=== PATIENT | male | born 1975 | race Caucasian/White ===

== ENCOUNTER 2018-08-20 20:23 | Emergency (ER) | payer OTHER ==
[2018-08-20 20:59] VITALS: RESP 18; O2SAT 99
[2018-08-20 22:13] VITALS: BP 138/76; PULSE 74; TEMP 98.5
--- NOTE | 2018-08-20 22:13 | C.PDOC ---
History Of Present Illness 42 year old male with PMHx of chronic back pain and GERD presents to the ED c/o epigastric abdominal pain, feeling bloated that started while driving today. Patient also reports having upper, mid and lower back pain consistent with his chronic back pain. Patient reports he drank a coke which made him burp and relieved the bloating feeling. Patient reports he took Zantac at home with some delayed relief. On arrival to the ED patient no longer having pain/bloating/burning in his abdomen. Patient requesting to have an EKG done. Wayne vazquez saw a senior center manager 2 months ago with normal echo and stress test. Patient denies fever, chills, headache, visual changes, dizziness, nausea, vomit, diarrhea, weakness, numbness, SOB, palpitations, Chest pain. Time Seen by Provider: 08/20/18 21:06 Chief Complaint (Nursing): Back Pain History Per: Patient History/Exam Limitations: no limitations Onset/Duration Of Symptoms: Hrs Current Symptoms Are (Timing): Still Present Quality Of Discomfort: Burning Recent travel outside of the [place]: No Additional History Per: Patient Past Medical History Reviewed: Historical Data, Nursing Documentation, Vital Signs Vital Signs: Last Vital Signs Temp 98.4 F 08/20/18 20:54 Pulse 70 08/20/18 20:54 Resp 18 08/20/18 20:54 BP 143/83 08/20/18 20:54 Pulse Ox 99 08/20/18 20:54 - Medical History PMH: Back Problems, GERD Denies: Chronic Kidney Disease Surgical History: No Surg Hx Family History: States: Unknown Family Hx - Social History Hx Tobacco Use: No Hx Alcohol Use: No Hx Substance Use: No - Immunization History Hx Tetanus Toxoid Vaccination: No Hx Influenza Vaccination: No Hx Pneumococcal Vaccination: No Review Of Systems Constitutional: Negative for: Fever, Chills Cardiovascular: Negative for: Chest Pain, Palpitations Respiratory: Negative for: Shortness of Breath Gastrointestinal: Positive for: Abdominal Pain. Negative for: Nausea, Vomiting Musculoskeletal: Positive for: Back Pain Skin: Negative for: Rash Neurological: Negative for: Weakness, Numbness, Headache, Dizziness Physical Exam - Physical Exam Appears: Non-toxic, No Acute Distress Skin: Normal Color, Warm, Dry, No Rash Head: Atraumatic, Normacephalic Eye(s): bilateral: Normal Inspection Oral Mucosa: Moist Neck: Normal ROM, Supple Chest: Symmetrical Cardiovascular: Rhythm Regular Respiratory: Normal Breath Sounds, No Rales, No Rhonchi, No Wheezing Gastrointestinal/Abdominal: Soft, No Tenderness, No Guarding, No Rebound Back: No CVA Tenderness Extremity: Normal ROM, No Tenderness, No Swelling Neurological/Psych: Oriented x3, Normal Speech, Normal Cognition Gait: Steady ED Course And Treatment ECG: Interpreted By Me, Viewed By Me ECG Rhythm: Sinus Rhythm ECG Interpretation: Normal Rate From EC (BPM) O2 Sat by Pulse Oximetry: 99 (ON RA) Pulse Ox Interpretation: Normal Progress Note: Plan: - EKG. Patient is resting comfortably, is no longer having dyspepsia, no chest pain, SOB. Patient has no risk factors for pulmonary emboli or DVT. Clinical presentation is not suggestive of aortic dissection. Patient is being discharged home and is being advised to follow up with physician/clinic in 1-2 days. Reassessment Condition: Improved Disposition - Disposition Referrals: Venu Hughes MD [Medical Doctor] - Disposition: HOME/ ROUTINE Disposition Time: 22:05 Condition: STABLE Additional Instructions: Please follow up with PMD continue tylenol and motrin for pain Return to ER if worse Instructions: Acid Reflux (Gastroesophageal Reflux Disease), Adult (DC) Forms: [employer] ([employer]) - Clinical Impression Clinical Impression: Dyspepsia, Back pain - PA / BROTH SETTER / Resident Statement MD/DO has reviewed & agrees with the documentation as recorded. - Scribe Statement The provider has reviewed the documentation as recorded by the Scribe Joseluis Jasso All medical record entries made by the Scribe were at my direction and personally dictated by me. I have reviewed the chart and agree that the record accurately reflects my personal performance of the history, physical exam, medical decision making, and the department course for this patient. I have also personally directed, reviewed, and agree with the discharge instructions and disposition.
--- NOTE | 2018-08-23 12:59 | CARD ---
APPROVED REPORT Date of service: 08/20/2018 EKG Measurement Heart [id number] <Conclusion> Normal sinus rhythm Normal ECG
== END 2018-08-20 22:20 | disposition home or self-care (01) ==
LOC: C.ER 20:23
DX: M54.5 Low back pain (principal); R10.13 Epigastric pain

== ENCOUNTER 2018-09-02 23:45 | Emergency (ER) | payer OTHER ==
[2018-09-03] MEDS ORDERED: Sodium Chloride 0.9% 3,000 ML IV ONE (01:25)
[2018-09-03] MEDS ORDERED: Sodium Chloride 0.9% 1,000 ML IV ONE (01:28)
--- NOTE | 2018-09-03 01:28 | C.PDOC ---
History Of Present Illness 42 year old male with PMHx of chronic back pain and GERD presents to the ED c/o palpitations that started at 21:00. Patient reports he is fasting for , felt symptoms after eating breakfast. Patient states his HR was 125 with a ssociated near syncope. Patient was seen on 08/20/18, patient saw restaurant team member 2 months ago with normal echo and stress test. Patient denies fever, chills, CP, SOB, leg swelling, other PE risk factors, nausea, vomit, diarrhea. PALPITATIONS SINCE 2100. PS FASTING FOR , FELT SX AFTER BREAKING FAST. HR 125. +ASSOC NEAR SYNCOPE. NO CP, SOB, LEG SWELL, OTHER PE RISK FACTORS. NO FEVER, NVD. SEEN 08/20/18 PMHx of chronic back pain and GERD. Patient saw a restaurant team member 2 months ago with normal echo and stress test. EXAM NAD NONTOXIC HEENT ANICTERIC LUNGS NARD CV RRR SINUS TACH EXT NO EDEMA SWELL REMAINDER NEG MDM PALPITATIONS. DEHYDRATION VS DYSRHYTHMIA Time Seen by Provider: 09/03/18 01:00 Chief Complaint (Nursing): Palpitations History Per: Patient History/Exam Limitations: no limitations Onset/Duration Of Symptoms: Hrs (21:00) Current Symptoms Are (Timing): Still Present Quality Of Symptoms: Rapid Heart Rate Recent travel outside of the [place]: No Additional History Per: Patient Past Medical History Reviewed: Historical Data, Nursing Documentation, Vital Signs Vital Signs: Last Vital Signs Temp 99 F 09/03/18 00:04 Pulse 106 H 09/03/18 00:11 Resp 18 09/03/18 00:04 BP 141/84 09/03/18 00:11 Pulse Ox 99 09/03/18 00:04 Primary Care Provider: Venu Hughes - Medical History PMH: Back Problems, GERD, HTN Denies: Chronic Kidney Disease Surgical History: No Surg Hx Family History: States: Unknown Family Hx - Social History Hx Tobacco Use: No Hx Alcohol Use: No Hx Substance Use: No - Immunization History Hx Tetanus Toxoid Vaccination: No Hx Influenza Vaccination: No Hx Pneumococcal Vaccination: No Review Of Systems Constitutional: Negative for: Fever, Chills Cardiovascular: Positive for: Palpitations. Negative for: Chest Pain Respiratory: Negative for: Cough, Shortness of Breath Gastrointestinal: Negative for: Nausea, Vomiting, Abdominal Pain Skin: Negative for: Rash Neurological: Negative for: Weakness, Numbness, Headache, Dizziness Physical Exam - Physical Exam Appears: Non-toxic, No Acute Distress Skin: Normal Color, Warm, Dry Head: Atraumatic, Normacephalic Eye(s): bilateral: Normal Inspection (anicteric), PERRL, EOMI Oral Mucosa: Moist Neck: Normal ROM, Supple Chest: Symmetrical Cardiovascular: Rhythm Regular (sinus tach) Respiratory: Normal Breath Sounds, No Rales, No Rhonchi, No Wheezing, Other (NARD) Extremity: Normal ROM, No Tenderness, Capillary Refill (< 2 seconds), No Swelling Neurological/Psych: Oriented x3, Normal Speech, Normal Cognition Gait: Steady ED Course And Treatment - Laboratory Results Result Diagrams: 09/03/18 01:37 09/03/18 01:37 ECG: Interpreted By Me ECG Rhythm: Sinus Tachycardia O2 Sat by Pulse Oximetry: 99 (ON RA) Pulse Ox Interpretation: Normal Progress - Re-Evaluation Re-evaluation Note: 09/03/18 01:28 ORTHOSTATIC VS WNL 09/03/18 04:20 AMBUL WO DIFF NO ASSOC DIZZ SP IVF - Data Reviewed Data Reviewed: Lab, Diagnostic imaging, EKG, Old records Medical Decision Making Medical Decision Making: Plan: * EKG * Labs * IV fluids MDM PALPITATIONS. DEHYDRATION VS DYSRHYTHMIA Disposition Counseled Patient/Family Regarding: Studies Performed, Diagnosis, Need For Followup - Disposition Referrals: Venu Hughes MD [Primary Care Provider] - Disposition: HOME/ ROUTINE Disposition Time: 04:20 Condition: IMPROVED Instructions: Dehydration, Adult (DC), Palpitations (DC) Forms: [employer] (Yakut) - Clinical Impression Clinical Impression: Palpitations, Dehydration - Scribe Statement The provider has reviewed the documentation as recorded by the Scribe Joseluis Jasso All medical record entries made by the Scribe were at my direction and personally dictated by me. I have reviewed the chart and agree that the record accurately reflects my personal performance of the history, physical exam, medical decision making, and the department course for this patient. I have also personally directed, reviewed, and agree with the discharge instructions and disposition.
[2018-09-03 01:41] LABS: BASO % 0.3 % (0.0-2.0); EOS # 0.4 K/uL (0.0-0.7); EOS % 4.1 % (0.0-4.0); HEMOGLOBIN 13.7 g/dL (12.0-18.0); LYMPH # 4.3 K/uL (1.0-4.3); LYMPH % 39.4 % (20.0-40.0); MEAN CELL VOLUME 80.4 fL (80.0-94.0); MEAN CORPUSCULAR HEMOGLOBIN 27.1 pg (27.0-31.0); MEAN CORPUSCULAR HGB CONC 33.7 g/dL (33.0-37.0); MEAN PLATELET VOLUME 8.2 fL (7.2-11.7); MONO # 1.1 K/uL (0.0-0.8); NEUT % 46.2 % (50.0-75.0); NRBC % 0.1 % (0.0-2.0); RBC 5.06 Mil/uL (4.40-5.90); RED CELL DISTRIBUTION WIDTH 14.2 % (11.5-14.5); WHITE BLOOD COUNT 10.9 K/uL (4.8-10.8)
[2018-09-03 01:51] LABS: BLOOD UREA NITROGEN 11 mg/dL (9-20); CALCIUM 9.3 mg/dl (8.6-10.4); GFR NON-AFRICAN AMERICAN > 60
[2018-09-03 04:21] VITALS: O2SAT 99
[2018-09-03 04:22] VITALS: BP 124/68; PULSE 64; RESP 18; TEMP 98
--- NOTE | 2018-09-03 14:34 | RAD ---
Date of service: 09/03/2018 HISTORY: Palpations COMPARISON: Comparison chest dated 05/12/2014. TECHNIQUE: Chest PA and lateral views FINDINGS: LUNGS: No active pulmonary disease. PLEURA: No significant pleural effusion identified. No pneumothorax apparent. CARDIOVASCULAR: No aortic atherosclerotic calcification present. Normal cardiac size. No pulmonary vascular congestion. OSSEOUS STRUCTURES: No significant abnormalities. VISUALIZED UPPER ABDOMEN: Normal. OTHER FINDINGS: None. IMPRESSION: No active disease.
--- NOTE | 2018-09-05 13:21 | CARD ---
APPROVED REPORT Date of service: 09/03/2018 EKG Measurement Heart [id number] <Conclusion> Sinus tachycardia Otherwise normal ECG
== END 2018-09-03 04:39 | disposition home or self-care (01) ==
LOC: SUPCPDRO 23:45 → C.ER 23:45
DX: R00.2 Palpitations (principal); E86.0 Dehydration
CPT/HCPCS: 71046; 80048; 84484; 85025; 85378; 93005; 96360; 96361; 99285; J7030